=== PATIENT | female | born 1960 | race Caucasian/White ===

== ENCOUNTER 2016-11-01 18:37 | Emergency (ER) | payer BC ==
[2016-11-01 18:49] VITALS: BP 107/90; PULSE 80; TEMP 98.5; BMI 21.0
--- NOTE | 2016-11-01 19:18 | PDOC ---
History of Present Illness - History of Present Illness Initial Comments: 11/01/16 19:50 The patient is a 56 year old female, with a significant past medical history of hyperthyroidism, migraines, and chronic low back pain, who presents to the emergency department with pain to her left distal calf for 2 weeks with sudden snap to her posterior left ankle while quickly walking up the ramp at [employer] this evening. She states she can flex and extend her left foot, however, reports pain to her left calf moreso with flexion than extension. She also reports pain to her posterior left thigh. She denies foot pain or numbness. She denies chest pain, shortness of breath, headache and dizziness. She denies fever, chills, nausea, vomit, diarrhea and constipation. She denies dysuria, frequency, urgency and hematuria. PAST MEDICAL HISTORY: hyperthyroidism, migraines, and chronic low back pain PAST SURGICAL HISTORY: no significant history FAMILY HISTORY: no pertinent history SOCIAL HISTORY: Pt lives with family and is employed. MEDICATIONS: reviewed ALLERGIES: As per nursing notes ADULT ROS General: No fevers or chills, no weakness, no weight loss HEENT: No change in vision. No sore throat,. No ear pain CardioVascular: No chest pain or shortness of breath Respiratory:No cough, or wheezing. Gastrointestinal: no nausea, vomiting, diarrhea or constipation, No rectal bleeding Genitourinary: No dysuria, hematuria, or frequency Musculoskeletal: (+) pain to left calf. No joint or muscle pain or swelling Neurologic: No headache, vertigo, dizziness or loss of consciousness Psychiatric: nor depression Skin: No rashes or easy bruising Endocrine: no increased thirst or abnormal weight change Allergic: no skin or latex allergy All other systems reviewed and normal ADULT PE GENERAL: The patient is awake, alert, and fully oriented, in no acute distress. HEAD: Normal with no signs of trauma. EYES: Pupils equal, round and reactive to light, extraocular movements intact, sclera anicteric, conjunctiva clear. EXTREMITIES: (+) ttp left calf with spasm of calf muscle no step-off palpated. Ttp of the inner left thigh without palpable cord. Neurovascular is intact. Able to fully extend her leg, as well as, dorsiflex and plantarflex the ankle. Normal range of motion, no edema. NEUROLOGICAL: Normal speech, normal gait. PSYCH: Normal mood, normal affect. SKIN: Warm, Dry, normal turgor, no rashes or lesions noted. <Lu Ku - Last Filed: 11/01/16 20:54> - General History Source: Patient Exam Limitations: No Limitations - History of Present Illness Initial Comments: 11/01/16 21:11 A portion of this note was documented by scribe services under my direction. I have reviewed the details of the note, within reason, and agree with the documentation. The case summary and management plan written by me. Assessment and plan: This is a 56-year-old female comes in complaining of pain in her left calf. Patient had an ultrasound that was negative for DVT however does show a Vallejo's cyst. This is likely the source of patient's pain. Patient given Pasha wrap and will follow-up with her orthopedist. <Alfred Michaels I - Last Filed: 11/01/16 21:11> - General Chief Complaint: Pain, Acute Stated Complaint: LEFT LEG PAIN Time Seen by Provider: 11/01/16 19:15 Past History <Lu Ku - Last Filed: 11/01/16 20:54> - Past Medical History Thyroid Disease: Yes Other medical history: MIGRAINES,EPILEPSY - Psycho/Social/Smoking Cessation Hx Anxiety: No Suicidal Ideation: No Smoking History: Never smoked Information on smoking cessation initiated: No Hx Alcohol Use: Yes (SOCIAL) Drug/Substance Use Hx: No Substance Use Type: Alcohol <Alfred Michaels I - Last Filed: 11/01/16 21:11> - Past Medical History Allergies/Adverse Reactions: Allergies Allergy/AdvReac Type Severity Reaction Status Date / Time amoxicillin trihydrate AdvReac Severe Verified 11/01/16 18:50 [From Augmentin] potassium clavulanate AdvReac Severe Verified 11/01/16 18:50 [From Augmentin] ALLEVE Allergy Severe Difficulty Uncoded 11/01/16 18:50 Breathing Home Medications: Ambulatory Orders Alprazolam [Alprazolam ER] 0.5 mg PO HS 11/01/16 Calcium Carbonate [Calcium] 1,200 mg PO HS 11/01/16 Cholecalciferol (Vitamin D3) [Vitamin D3] 3,000 unit PO HS 11/01/16 Levothyroxine [Synthroid -] 100 mcg PO DAILY 11/01/16 Multivitamin [Poly-Vitamin] 1 each PO HS 11/01/16 Nefazodone HCl 200 mg PO DAILY 11/01/16 OXcarbazepine [Trileptal] 600 mg PO HS 11/01/16 Ospemifene [Osphena] 60 mg PO HS 11/01/16 Oxcarbazepine [Trileptal] 300 mg PO AM 11/01/16 Pravastatin Sodium [Pravachol (Nf)] 20 mg PO HS 11/01/16 *Physical Exam - Vital Signs Last Vital Signs Temp Pulse Resp BP Pulse Ox 98.5 F 80 18 107/90 99 11/01/16 18:38 11/01/16 18:38 11/01/16 18:38 11/01/16 18:38 11/01/16 18:38 <Lu Ku - Last Filed: 11/01/16 20:54> - Vital Signs Last Vital Signs Temp Pulse Resp BP Pulse Ox 98.5 F 80 18 107/90 99 11/01/16 18:38 11/01/16 18:38 11/01/16 18:38 11/01/16 18:38 11/01/16 18:38 <Alfred Michaels I - Last Filed: 11/01/16 21:11> ED Treatment Course - RADIOLOGY Radiograph Interpretation: 11/01/16 20:55 Left Lower Extremity Doppler US was read by Dr. Christie at 20:47 Impression: No evidence of DVT. Vallejo's cyst in the left popliteal fossa measuring 2.2 x 0.9 cm <Lu Ku - Last Filed: 11/01/16 20:54> *DC/Admit/Observation/Transfer - Attestations Scribe Attestion: 11/01/16 19:53 Documentation prepared by Lu Ku, acting as medical technologist chemistry for Alfred Michaels MD <Lu Ku - Last Filed: 11/01/16 20:54> - Discharge Dispostion Admit: No <Alfred Michaels I - Last Filed: 11/01/16 21:11> Diagnosis at time of Disposition: Vallejo's cyst of knee Qualifiers: Laterality: left Qualified Code(s): M71.22 - Synovial cyst of popliteal space [ Vallejo], left knee - Discharge Dispostion Disposition: HOME Condition at time of disposition: Stable - Patient Instructions Additional Instructions: Tylenol or Motrin as needed for pain. Try to limit standing and rest the knee is much as possible. Follow-up with your orthopedist in the city. Return to the emergency department immediately with ANY new, persistent or worsening symptoms. Continue any medications as previously prescribed by your physician. You should follow up with your primary doctor as soon as possible regarding today's emergency department visit. . Please make sure your doctor reviews the results of your emergency evaluation. Thank you for coming to the Emergency Department today for your care. It was a pleasure to see you today. Please note that your evaluation is INCOMPLETE until you follow-up with your doctor.
== END 2016-11-01 21:10 | disposition home or self-care (01) ==
LOC: FER 18:37
DX: M71.22 Synovial cyst of popliteal space [Baker], left knee (principal); G40.909 Epilepsy, unspecified, not intractable, without status epilepticus; E07.9 Disorder of thyroid, unspecified
CPT/HCPCS: 93971-TC; 99283-25